=== PATIENT | female | born 1980 | race Caucasian/White ===

== ENCOUNTER → 2017-09-29 | Outpatient (CLI) | payer OTHER ==
--- NOTE | 2017-09-29 13:15 | KCIC ---
EXAMINATION: Magnetic resonance imaging (MRI) of the lumbar spine without contrast 09/29/2017 12:30 PM HISTORY: Low back pain with left radiculopathy for 3 weeks TECHNIQUE: Multiplanar multi-weighted MRI of the lumbar spine was performed without intravenous contrast using the standard lumbar spine protocol. Contrast information: None administered. COMPARISON: None available. FINDINGS: There is mild levoconvex curvature of the lumbar spine with apex levocurvature at L3-L4. There is minimal retrolisthesis of L5 on S1. There is disc desiccation at L3-L4, L4-L5 and L5-S1 with associated annular fissures. There is moderate disc height loss at L5-S1. Mild edema is noted within the disc space. The conus medullaris terminates at L1. Distal spinal cord signal intensity is normal in all sequences. Visualized portions of the kidneys appear normal. Abdominal aorta is normal in course and caliber. Visualized portions of the sacrum appear intact. Marrow signal intensity is normal in all sequences with exception of Modic type II endplate degenerative changes at L5-S1. Moderate anterior marginal osteophytosis is identified at L5-S1. L2-L3: There is minimal disc bulge. There is mild facet arthropathy. No neuroforaminal or spinal canal stenosis. L3-L4: There is a circumferential disc bulge with right foraminal disc protrusion. There is moderate facet arthropathy ligamentum flavum infolding. There is no significant neuroforaminal or spinal canal stenosis. L4-L5: There is a left central disc protrusion. There is mild to moderate facet arthropathy with ligamentum flavum infolding. There is no significant neuroforaminal stenosis. There is left lateral recess stenosis, likely affecting the traversing left L5 nerve. L5-S1: There is a circumferential disc bulge with bilateral far lateral disc protrusions. There is moderate facet arthropathy. There is moderate bilateral neuroforaminal stenosis, left greater than right. There is no spinal canal stenosis. There is mild left lateral recess stenosis. IMPRESSION: There is a left central disc protrusion at L4-L5 with mild to moderate facet arthropathy and ligamentum flavum infolding resulting in left lateral recess stenosis, likely affecting the traversing left L5 nerve. L1-L2: The disc is normal in configuration. There is no facet arthropathy. There is no neuroforaminal stenosis. There is no spinal canal stenosis. L2-L3: The disc is normal in configuration. There is no facet arthropathy. There is no neuroforaminal stenosis. There is no spinal canal stenosis. L3-L4: The disc is normal in configuration. There is no facet arthropathy. There is no neuroforaminal stenosis. There is no spinal canal stenosis. L4-L5: The disc is normal in configuration. There is no facet arthropathy. There is no neuroforaminal stenosis. There is no spinal canal stenosis. L5-S1: The disc is normal in configuration. There is no facet arthropathy. There is no neuroforaminal stenosis. There is no spinal canal stenosis. IMPRESSION: Mild degenerative changes of the lumbar spine as described in detail above. Electronically signed by: Consuelo Boyle MD (09/29/2017 1:11 PM) [id number]
== END | disposition home or self-care (01) ==
LOC: KCIC MRI 12:09
PROVIDERS: ATTEND Chiropractor
DX: M47.896 Other spondylosis, lumbar region (principal); M51.26 Other intervertebral disc displacement, lumbar region; M48.061 Spinal stenosis, lumbar region without neurogenic claudication; M12.88 Other specific arthropathies, not elsewhere classified, other specified site
CPT/HCPCS: 72148